=== PATIENT | male | born 1945 | race Caucasian/White ===

== ENCOUNTER 2024-03-23 10:45 | Outpatient (AMB) | payer MEDICARE, SELFPAY ==
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
[2024-03-23 11:05] VITALS: BP 188/87; PULSE 90; O2SAT 97; BMI 25.3
--- OUTSIDE RECORDS SUMMARY | 2024-03-23 12:51 | XMS_ITS | Continuity of Care Document ---
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 Name Role Phone Lion Chau MD Primary Care Physician [phone] Encounter [facility] Date(s): 03/02/24 - 03/09/24 [facility] Cardiac Surgery [address] [place] [address] Drive [address] [place] [address]- Attending Physician: Erich Wilson MD Referring Physician: Danuta SHANNON, [facility] Encounter Type: Office Visit Allergies, Adverse Reactions, Alerts Substance Criticality Severity Reaction Reaction Severity Status gabapentin SOB Active Dust Unable to assess criticality Intermittent Active Mold Unable to assess criticality Intermittent Active Pollen Active Lyrica Active DAMARIS inhibitors cough Activ e losartan Active Tolectin 600 Rectal bleeding A ctive pregabalin 1 Active 1bleeding from rectum Immunizations Given and Recorded Vaccine Date Status Refusal Reason tetanus/diphtheria/pertussis, acel(Tdap) 10/19/22 Given tetanus/diphtheria/pertussis, acel(Tdap) 09/07/14 Recorded [id number] bivalent booster vax 04/25/22 Recorded SARS-CoV-2 (COVID-19) mRNA-1273 vaccine 01/24/21 R ecorded SARS-CoV-2 (COVID-19) mRNA-1273 vaccine 07/12/20 R ecorded SARS-CoV-2 (COVID-19) mRNA-1273 vaccine 06/14/20 R ecorded SARS-CoV-2 (COVID-19) mRNA BNT-162b2 vac 05/24/20 Recorded Problem List Condition Confirmation Course Effective Dates Status H ealth Status Informant Elevated alkaline phosphatase level Confirmed Active Mild anemia Confirmed Active Aortic sclerosis Confirmed Active BPH with obstruction/lower urinary tract symptoms Confirmed Active Bilateral lower extremity edema Confirmed Active Blurred vision Confirmed Active Cardiac pacemaker in situ Confirmed Active Carotid atherosclerosis Confirmed Active Intracranial atherosclerosis 1, 2 Confirmed Active Cervical radiculopathy Confirmed Active CKD (chronic kidney disease), stage III Confirmed Active Congestive heart failure (CHF) Confirmed Active Coronary artery disease Confirmed Active Crohn's disease Confirmed Active Dysphagia Confirmed Active Greater trochanter fracture Confirmed Active Fracture of humerus neck Confirmed Active Shoulder fracture, left Confirmed Active Cardiac murmur Confirmed Active Ventral hernia 3 Confirmed Active History of coronary artery bypass graft Confirmed Active History of COVID-19 Confirmed Active Status post total right knee replacement Confirmed Active Hyperglycemia due to diabetes mellitus Confirmed Active Hyperlipidemia Confirmed Active Hypertensive disorder Confirmed Active Chronic lumbar radiculopathy Confirmed Active Aortic stenosis, moderate Confirmed Active Chronic pain of multiple joints Confirmed Active Opioid use Confirmed Active Paroxysmal atrial fibrillation with RVR Confirmed Active Recurrent falls Confirmed Active TACO (transfusion associated circulatory overload) 4 Confirmed 10/22/22 Active Tricuspid regurgitation 5 Confirmed Active Type 2 diabetes mellitus with hyperglycemia, without long-term current use of insulin Confirmed Active 1Above should read and MRA brain, MRI was also included in scanned document 2MRI brain at [facility] 2019 (scanned into our system) 3On abdominal imaging 4Patient at risk for Transfusion-Associated Circulatory Overload (TACO). The use of slow infusion rates, the administration of haily-transfusion diuretics where not clinically contraindicated, and/or the transfusion of split units of PRBCs should be considered in any future hemotherapy interventions.Consult Transfusion Medicine Services if any questions. 5TEE/TTE 2021 Vital Signs Most recent to oldest [Reference Range]: 1 Height 177 cm (03/02/24 11:31 AM) Weight 79.5 kg (03/02/24 11:31 AM) Oxygen Saturation [94-100 %] 99 % (03/02/24 11:31 AM) Pulse Rate [55-90 bpm] 56 bpm (03/02/24 11: AM) Body Mass Index [18.5-24.99 kg/m2] 25.38 kg/m2 *H* (03/02/24 11:31 AM) Blood Pressure [90-138/55-84 mm Hg] 128/ 80mm Hg (03/02/24 11:31 AM) Respiratory Rate [16-30 br/min] 14 br/mi n *L* (03/02/24 11:31 AM) Temperature [96.8-100.4 DegF] 97 DegF (03/02/24 11:31 AM) Mode of Delivery (Oxygen) Room air (03/02/24 11:31 AM) Blood pressure sites Arm, right (03/02/24 11:31 AM) Temperature Route Oral (03/02/24 11:31 AM) Weight Obtained Via Standing scale (03/02/24 11:31 AM) Social History Social History Type Response Smoking Status Never (less than 100 in lifetime); Use: pt denies entered on: 12/27/21 Sex Sex Representation Male (finding) Cardiac surgery Outpatient Note * Katie SHANNON, Erich: PERFORM Event Display: Cardiac Surgery Note Office Authored Date: [id number] Patient: ??RACHELLE BRANDON ? Age:??78 Years?Sex:??Male?:??1945?? Reason for Consultation severe History of Present Illness The patient is an 78-year-old male??with PMH??CAD/afib s/p CABGx3 in 2019, LAAL, h/o leadless pacemaker,??HTN,??chronic pain with opioid addiction, HLD, varicose veins, OA, poor mobility??who presented with progressive dyspnea on exertion and was found to have severe aortic stenosis, possibly low flow low gradient. ??Echo showed severe low flow low gradient mean gradient [address] TAVR from 11/2023 appears amenable to TF TAVR, patent grafts.?He denies any PND, orthopnea, cough, chestpain, pressure, palpitations, or dizziness/lightheadedness, bleeding, dark stools or abdominal complaints. He does not have exertional lightheadedness or syncope. He has not been hospitalized for overt congestive heart failure. ?? Review of Systems Constitutional:??No weight loss, fever, chills, weakness or fatigue. Allergy/Immune: Denies any??Eczema or hives Eyes:??No visual loss, blurred vision, double vision or yellow sclera ENT:??No hearing loss, sneezing, congestion, runny nose or sore throat. Respiratory:??No shortness of breath, cough or sputum production. Cardiovascular:??No chest pain, chest pressure or chest discomfort. No palpitations or pedal edema. Gastrointestinal:??No anorexia, nausea, vomiting or diarrhea. No abdominal pain or blood in stool. Genitourinary:??No burning micturition. No urinary frequency or incontinence. Neurologic:??No headache, dizziness, syncope, unilateral weakness, ataxia, numbness or tingling in the extremities. No change in bowel or bladder control. Musculoskeletal:??No muscle pain, back pain, joint pain or stiffness. Hematologic/Lymphatics:??No bleeding or bruising. No painful lymph nodes. Skin:??No rash or itching. Endocrine:??No reports of sweating. No cold or heat intolerance. No polyuria or polydipsia. Psychiatric:??No depression or anxiety. Physical Exam Vitals & Measurements T:??97?F?? HR:??56??(Peripheral)?? RR:??14?? BP:??128/80?? SpO2:??99%?? WT:??79.5??kg?? CONST:??Appears stated age, no acute distress, alert and oriented X 3 EYES:??Anicteric, nl conjunctivae, EOM intact ENT:??Nl oropharynx NECK:??No evidence of JVD or HJR. Carotid impulses and upstroke normal bilaterally, no carotid bruits?? CV: Regular rhythm, S1/S2.??There is a mid to late systolic crescendo decrescendo murmur noted in aortic area radiating towards carotids. ??No rubs or gallop noted. Femoral pulses nl and symmetric, no femoral bruits.??No aortic pulsation or aortic bruits. RESP:??Normal respiratory effort,??clear to auscultation GI:??Soft, non-tender and non-distended, bowels sounds normoactive, no abdominal bruits EXT: no??lower extremity edema,??no clubbing,??no cyanosis SKIN:??No rash, skin warm and dry.?? NEURO:?Alert and oriented x 3, CN 2-12 grossly intact?? Assessment/Plan The patient is an 78-year-old male with??low flow low gradient severe aortic stenosis who presentedwith progressive dyspnea on exertion and now is being evaluated for aortic valve replacement. Preoperative evaluation includes cardiac catheterization, CT TAVR and echocardiogram, which I reviewed indetail. I discussed at length the two types of aortic valve replacement, namely surgical and transcatheter, with the patient in my office today. His??STS risk for mortality for an isolated aortic valve replacement is calculated to??2.63%, which places him??in the??intermediate??risk category, however grossly underestimated.??We discussed in detail the risk of paravalvular leak and the superintendent container terminal durability concerns with TAVR; the patient expressed understanding of these risks and wishes to pursue the transcatheter approach instead of surgical aortic valve replacement. ??He is amenable to emergency open heart surgery in the case of a complication during TAVR. None the less, I believe the patient is a suitable TAVR candidate. We will further discuss his??case at an upcoming multidisciplinaryTAVR team meeting. ?? Thank you for this referral. ? Erich Wilson MD [facility] Cardiac Surgery?? [address] [facility], [address] [place] [address] Office: [phone] ? Problem List/Past Medical History Ongoing Acute on chronic diastolic CHF (congestive heart failure) Anemia Aortic sclerosis Aortic stenosis, moderate Atherosclerosis Atrial fibrillation Benign prostatic hyperplasia Blurred vision Carotid atherosclerosis Cellulitis of leg, right Cervical spondylosis Chronic pain CKD (chronic kidney disease), stage III Coronary artery disease COVID-19 COVID-19 Crohn's disease Diabetes Diabetic peripheral neuropathy Dysphagia Edema Fracture of humerus neck Greater trochanter fracture History of congestive heart failure in adulthood Hyperglycemia due to diabetes mellitus Hyperglycemia due to diabetes mellitus Hyperlipidemia Hypertensive disorder Hypokalemia Intracranial atherosclerosis Knee arthropathy Lymphedema of leg Opioid abuse Opioid use Paroxysmal atrial fibrillation with RVR Recurrent falls Shoulder fracture, left Spinal stenosis Status post total right knee replacement TACO (transfusion associated circulatory overload) Tricuspid regurgitation Ventral hernia Procedure/Surgical History ???Arthroplasty Knee Total (Right, Knee) (06/22/2023)???Esophagogastroduodenoscopy and biopsy (01/23/2023)???Direct current cardioversion (10/15/2020)???s/p single chamber Micra pacemaker (09/27/2020)???Arthroscopy Diagnostic and Operative Knee (Left, Knee) (04/30/2020)???Arthrotomy Knee (w/possible, Left, Knee) (04/30/2020)???CABG - Coronary artery bypass graft x 3 (12/13/2018)???Cardiac catheterization (11/04/2018)???Ablation of right GSV???History of Catheter Ablation Of Arrhythmogenic Bypass Tracts???History of Elective Cardioversion???History of Inguinal Hernia Repair???History of Laminectomy Decompressive Up To Two Lumbar Segments???History of Rotator Cuff Repair???History of shouldersurgery???THR - Total hip replacement Medications Inpatient No active inpatient medications Home aspirin 81 mg oral delayed release tablet, 81 mg= 1 tablet, By Mouth, Daily atorvastatin 20 mg oral tablet, 1 tablet, By Mouth, Daily bisoprolol 5 mg oral tablet, 5 mg= 1 tablet Contour Next EZ Glucometer, See Instructions Contour Next EZ Test Strips, See Instructions, 3 refills Contour Next Gen Microlet Lancets, See Instructions, 3 refills Fiber Choice, 3 Gm, Daily at bedtime finasteride 5 mg oral tablet, 5 mg= 1 tablet, By Mouth, Daily at bedtime glipiZIDE 5 mg oral tablet, extended release, 5 mg= 1 tablet, By Mouth, Daily ICaps AREDS 2 Imitrex 25 mg oral tablet, 25 mg= 1 tablet, By Mouth, Once, PRN [employer] [place]-3, 1200 mg, By Mouth, 3 times a day Lasix 40 mg oral tablet, 40 mg, By Mouth, Daily magnesium oxide 400 mg oral tablet, 400 mg= 1 tablet, By Mouth, Daily mesalamine 800 mg oral delayed release tablet, 800 mg= 1 tablet, By Mouth, 3 times a day, 6 refills Multivitamin Nitroglycerin 0.4mg Sublingual Tablet (OP), See Instructions omeprazole 40 mg oral enteric coated capsule, 40 mg= 1 capsule, By Mouth, Daily OxyCONTIN 10 mg oral tablet, extended release, 10 mg= 1 tablet, By Mouth, Every 12 hours Probiotic Formula, By Mouth, Daily saccharomyces boulardii lyo 250 mg oral capsule, 250 mg= 1 capsule, By Mouth, 2 times a day tamsulosin 0.4 mg oral capsule, 0.8 mg= 2 capsule, By Mouth, Daily at bedtime temazepam 15 mg oral capsule, 15 mg= 1 capsule, By Mouth, Daily at bedtime, PRN True metrix lancets, See Instructions, 3 refills True metrix Test Strips, See Instructions, 3 refills Truemetrix Glucose meter, See Instructions Allergies Dust Mold DAMARIS inhibitors??(cough) Lyrica Pollen Tolectin 600??(Rectal bleeding) gabapentin??(SOB) losartan pregabalin Social History Alcohol Use: quit 56 years ago. Electronic Cigarette/Vaping Electronic Cigarette Use: Never. Employment/School Status: Retired. Exercise Self assessment: Poor condition. Other: pt states he has not had much activities in 4 months. Regular exercise: No. Home/Environment Living situation: senior living. Lives with: Alone, states and son have both passed. Other: states and son have passed. has no friends out people to talk to. Nutrition/Health Diet: mostly canned foods and preprepared frozen foods. Does not cook--uses the microwave.. Sexual Sexually involved in last 6 months: No. Substance Abuse Use: pt denies. Tobacco Use: Never (less than 100 in lifetime), pt denies. Family History Thyroid disease: Father. Immunizations Vaccine Date Status influenza virus vaccine, inactivated - Not Given Comments : Patient Refuses tetanus/diphtheria/pertussis, acel(Tdap) 10/19/2022 Given [id number] bivalent booster vax 04/25/2022 Recorded influenza virus vaccine, inactivated - Not Given Comments : Patient Refuses SARS-CoV-2 (COVID-19) mRNA-1273 vaccine 01/24/2021 Recorded SARS-CoV-2 (COVID-19) mRNA-1273 vaccine 07/12/2020 Recorded SARS-CoV-2 (COVID-19) mRNA-1273 vaccine 06/14/2020 Recorded SARS-CoV-2 (COVID-19) mRNA BNT-162b2 vac 05/2020 Recorded tetanus/diphtheria/pertussis, acel(Tdap) 09/07/2014 Recorded * Sara Mensah MA: PERFORM, SIGN, VERIFY Event Display: Cardiac Surgery Note Office Authored Date: [id number] Patient: RACHELLE BRANDON Age: 78 years Sex: Male : 1945 Associated Diagnoses: None Author: Sara Mensah MA [place] Cardiomyopathy Questionnaire (CQ-12) The following questions refer to your heart failure and how it may affect your life. Please read and complete the following questions. There is no right or wrong answers. Please cub[place] the answer that best applies to you. 1. Heart failure affects different people in different ways. Some feel shortness of breath while others feel fatigue. Please indicate how much you are limited by heart failure (shortness of breath orfatigue) in your ability to do the following activities over the past 2 weeks. a. Showering/bathing: Extremely Limited (_) 1 Quite a bit limited (x) 2 Moderately Limited (_) 3 Slightly Limited (_) 4 Not at all Limited (_) 5 Limited for other reasons or did not do the activity (_) 6 b. Walking 1 block on level ground: Extremely Limited (_) 1 Quite a bit limited (_) 2 Moderately Limited (x) 3 Slightly Limited (_) 4 Not at all Limited (_) 5 Limited for other reasons or did not do the activity (_) 6 c. Hurrying or jogging (as if to catch a bus): Extremely Limited (x) 1 Quite a bit limited (_) 2 Moderately Limited (_) 3 Slightly Limited (_) 4 Not at all Limited (_) 5 Limited for other reasons or did not do the activity (_) 6 2. Over the past 2 weeks, how many times did you have swelling in your feet, ankles or legs when you woke up in the morning? Every Morning (x) 1 3 or more times per week but not every day (_) 2 1-2 times per week (_) 3 Less than once a week (_) 4 Never over the past 2 weeks (_) 5 3. Over the past 2 weeks, on average, how many times has fatigue limited your ability to do what you wanted? All of the time (_) 1 Several Times per day (x) 2 At least once a day (_) 3 3 or more times per week but not every day (_) 4 1-2 times per week (_) 5 Less than once a week (_) 6 Never over the past 2 weeks (_) 7 4. Over the past 2 weeks, on average, how many times has shortness of breath limited your ability to do what you wanted? All of the time (_) 1 Several Times per day (_) 2 At least once a day (_) 3 3 or more times per week but not every day (_) 4 1-2 times per week (_) 5 Less than once a week (_) 6 Never over the past 2 weeks (x) 7 5. Over the past 2 weeks, on average, how many times have you been forced to sleep sitting up in a chair or with at least 3 pillows to prop you up because of shortness of breath? Every night (_) 1 3 or more times per week but not every day (_) 2 1-2 times per week (_) 3 Less than once a week (_) 4 Never over the past 2 weeks (x) 5 6. Over the past 2 weeks, how much has your heart failure limited your enjoyment of life? It has extremely limited my enjoyment of life (_) 1 It has limited my enjoyment of life quite a bit (_) 2 It has moderately limited my enjoyment of life (x) 3 It has slightly limited my enjoyment of life (_) 4 It has not limited my enjoyment of life at all (_) 5 7. If you had to spend the rest of your life with your heart failure the way it is right now, how would you feel about this? Not at all satisfied (x) 1 Mostly dissatisfied (_) 2 Somewhat satisfied (_) 3 Mostly satisfied (_) 4 Completely satisfied (_) 5 8. How much does your heart failure affect your lifestyle? Please indicate how your heart failure may have limited your participation in the following activities over the past 2 weeks. a. Hobbies, recreational activities: Severely Limited (_) 1 Limited quite a bit (x) 2 Moderately Limited (_) 3 Slightly Limited (_) 4 Did not limit at all (_) 5 Does not apply or did not do for other reasons (_) 6 b. Working or doing drafter castings: Severely Limited (x) 1 Limited quite a bit (_) 2 Moderately Limited (_) 3 Slightly Limited (_) 4 Did not limit at all (_) 5 Does not apply or did not do for other reasons (_) 6 c. Visiting family or friends out of your home: Severely Limited (_) 1 Limited quite a bit (_) 2 Moderately Limited (x) 3 Slightly Limited (_) 4 Did not limit at all (_) 5 Does not apply or did not do for other reasons (_) 6 Total Score: 31 * Sara Mensah MA: PERFORM, SIGN, VERIFY Event Display: Cardiac Surgery Note Office Authored Date: [id number] Patient: RACHELLE BRANDON Age: 78 years Sex: Male : 1945 Associated Diagnoses: None Author: Sara Mensah MA TAVR Program Functional Assessment Test The KCCQ12 questionnaire was documented separately from this series of tests. A walk and farm reporter tests were performed on this patient with the following results: Walk Test- Five-meter Gait Speed #1 - 10.25sec #2 - 12.64sec #3 - 9.30sec Equals = 32.20sec Average = 10.73sec Average Adult Supervisor [employer] Strength (kg) Right: #1 - _kg #2 - _kg #3 - _kg Equals = _kg Average = _kg Graded Classification: _ Left: #1 - _kg #2 - _kg #3 - _kg Equals = _kg Average = _kg Graded Classification: _ Patient Care team information Care Team Personnel Name: Noreen Murphy CNM Position: Reference Physician Member Role: Primary Care Nurse Address: [address] [place] [id number] Telecom: Name: Mary Carvalho RN Position: [facility] RN Member Role: Primary Care Nurse Name: Marco Antonio Knutson RN Position: [facility] RN Member Role: Primary Care Nurse Name: Deedee Rubin RN Position: [facility] Hospital Wet And Dry Sugar Bin Operator Member Role: Primary Care Nurse Name: Georgina Herrera RN Position: [facility] RN Member Role: Primary Care Nurse Name: Marixa Leung RN Position: [facility] AMB Nurse Member Role: Primary Care Nurse Name: Georgina Kate RN Position: [facility] RN Member Role: Primary Care Nurse Name: Kindra Kohli RN Position: [facility] RN Member Role: Primary Care Nurse Name: Marsha Agudelo RN Position: [facility] RN Member Role: Primary Care Nurse Name: Mishel Scott RN Position: [facility] RN Member Role: Primary Care Nurse Name: Anabel Logan RN Position: [facility] RN Member Role: Primary Care Nurse Name: Jonny Mcbride RN Position: [facility] RN Member Role: Primary Care Nurse Name: Kasandra Gillespie RN Position: [facility] RN Member Role: Primary Care Nurse Name: Cesario Painter RN Position: [facility] RN Supv Member Role: Primary Care Nurse Name: Georgina Thomas RN Position: [facility] RN Member Role: Primary Care Nurse Name: Felicia Monzon RN Position: [facility] SN RN Member Role: Primary Care Nurse Name: Becca Ontiveros RN Position: [facility] RN Supv Member Role: Primary Care Nurse Name: Poncho Allison RN Position: [facility] RN Member Role: Primary Care Nurse Name: Georgette Reyes RN Position: [facility] RN Member Role: Primary Care Nurse Name: Linda Chavis RN Position: [facility] RN Member Role: Primary Care Nurse Name: Wilbert Hazel RN Position: [facility] RN Member Role: Primary Care Nurse Name: Celi Xavier RN Position: [facility] RN Member Role: Primary Care Nurse Name: Sharon Sumner RN Position: [facility] RN Member Role: Primary Care Nurse Name: Екатерина Zuluaga RN Position: [facility] RN Member Role: Primary Care Nurse Name: Blu Bauer RN Position: [facility] RN Member Role: Primary Care Nurse Name: Terese Arce RN Position: [facility] RN Member Role: Primary Care Nurse Name: Carolyn Garcia RN Position: [facility] RN Member Role: Primary Care Nurse Name: Georgette Clarke RN Position: [facility] press service reader Member Role: Shellacker Name: Paris Pederson RN Position: [facility] RN Member Role: Primary Care Nurse Name: Marilee Romero RN Position: [facility] RN Member Role: Primary Care Nurse Name: Vu Bishop RN Position: [facility] RN Supv Member Role: Primary Care Nurse Name: Terese Davenport RN Position: [facility] RN Member Role: Primary Care Nurse Name: Paula Gil RN Position: [facility] RN Member Role: Primary Care Nurse Name: Maria Dias RN Position: [facility] RN Member Role: Primary Care Nurse Name: Corin Baker RN Position: [facility] RN Member Role: Primary Care Nurse Name: Lion Chau MD Position: [facility] Physician - Primary Care Member Role: PCP Address: [address] [place] [address], [address] [place], [place] [address] Telecom: Name: Loreto Pascal LPN Position: [facility] RN Member Role: Primary Care Nurse Name: Anabel Peraza RN Position: [facility] RN Member Role: Primary Care Nurse Name: Sona Willis RN Position: [facility] AMB Nurse Member Role: Primary Care Nurse Care Team Related Persons Name: RACHELLE BRANDON Insurance Providers Guarantor name: AIDA Health Plan Information #: 1 Payer: MEDICARE PART B OUTPT Member Number: [id number] Policy Number: NA Group Number: NA Health Plan Information #: 2 Payer: MEDEX Member Number: [id number] Policy Number: NA Group Number: NA
--- OUTSIDE RECORDS SUMMARY | 2024-03-23 12:51 | XMS_ITS ---
Author Organization [facility] Address Unknown Allergies, Adverse Reactions, Alerts Substance Reaction Status Noted Date Resolved Date Tolectin active 10/31/2022 Pregabalin active 10/31/2022 mold active 10/31/2022 Losartan active 10/31/2022 Gabapentin active 10/31/2022 Dust active 10/31/2022 DAMARIS Inhibitors active 10/31/2022 Problems Problem Status Start Date End Date OTHER LACK OF COORDINATION ( Primary) (R27.8 - ICD-10-CM) ACTIVE 10/31/2022 OTHER DISPLACED FRACTURE OF UPPER END OF RIGHT HUMERUS, SUBSEQUENT ENCOUNTER FOR FRACTURE WITH ROUTINE HEALING (S42.291D - ICD-10-CM) ACTIVE 10/31/2022 UNSPECIFIED TROCHANTERIC FRA CTURE OF RIGHT FEMUR, SUBSEQUENT ENCOUNTER FOR CLOSED FRACTURE WITH ROUTINE HEALING (S72.101D - ICD-10-CM) ACTIVE 10/31/2022 TYPE 2 DIABETES MELLITUS WIT HOUT COMPLICATIONS (E11.9 - ICD-10-CM) ACTIVE 10/31/2022 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 - ICD-10-CM) ACTIVE 10/31/2022 UNSPECIFIED PROTEIN-CALORIE MALNUTRITION (E46 - ICD-10-CM) ACTIVE 10/31/2022 SEPSIS, UNSPECIFIED ORGANISM (A41.9 - ICD-10-CM) ACTIV E 10/31/2022 DYSPHAGIA FOLLOWING UNSPECIF IED CEREBROVASCULAR DISEASE (I69.991 - ICD-10-CM) ACTIVE 10/31/2022 DIFFICULTY IN WALKING, NOT E LSEWHERE CLASSIFIED (R26.2 - ICD-10-CM) ACTIVE 10/31/2022 ATHEROSCLEROTIC HEART DISEAS E OF [place] 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 - ICD-10-CM) ACTIVE 11/01/19 23 OPIOID ABUSE, UNCOMPLICATED (F11.10 - ICD-10-CM) ACTIV E 10/31/2022 IRON DEFICIENCY ANEMIA, UNSP ECIFIED (D50.9 - ICD-10-CM) ACTIVE 10/31/2022 BENIGN PROSTATIC HYPERPLASIA WITHOUT LOWER URINARY TRACT SYMPTOMS (N40.0 - ICD-10-CM) ACTIVE 10/31/2022 ANEMIA, UNSPECIFIED (D64.9 - ICD-10-CM) ACTIVE 0 10/31/2022 LOW BACK PAIN, UNSPECIFIED (M54.50 - ICD-10-CM) ACTIVE 10/31/2022 MAJOR DEPRESSIVE DISORDER, S ROXANNE EPISODE, UNSPECIFIED (F32.9 - ICD-10-CM) ACTIVE 10/31/2022 UNSPECIFIED ATRIAL FIBRILLATION (I48.91 - ICD-10-CM) A CTIVE 10/31/2022 OCCLUSION AND STENOSIS OF UN SPECIFIED CAROTID ARTERY (I65.29 - ICD-10-CM) ACTIVE 10/31/2022 ANEMIA IN CHRONIC KIDNEY DISEASE (D63.1 - ICD-10-CM) A CTIVE 10/31/2022 HYPERLIPIDEMIA, UNSPECIFIED (E78.5 - ICD-10-CM) ACTIVE 10/31/2022 EDEMA, UNSPECIFIED (R60.9 - ICD-10-CM) ACTIVE ESSENTIAL (PRIMARY) HYPERTENSION (I10 - ICD-10-CM) ACT BLADIMIR 10/31/2022 HYPOKALEMIA (E87.6 - ICD-10-CM) RESOLVED 3 10/31/2022 Encounters Encounter Performer Performer Role Encounter Diagnoses Location Date Discharge - Discharged / Transferred to another hospital - [facility] 3 05:32 pm EDT - 3 11:50 pm EDT Reason For Referral Pain (uncontrolled) Immunizations Vaccine Date Tdap (Tetanus, Diphtheria, Pertussis) 12:00 am EDT Moderna Covid-19 Booster (SARS-COV-2) va ccine 01/24/2021 12:00 am EST Moderna Covid-19 Booster (SARS-COV-2) va ccine 07/12/2020 12:00 am EDT Moderna Covid-19 Booster (SARS-COV-2) va ccine 06/14/2020 12:00 am EDT Moderna COVID-19 Bi-valent Solution /0 04/2022 12:00 am EST Social History
--- OUTSIDE RECORDS SUMMARY | 2024-03-23 12:52 | XMS_ITS | Encounter Summary ---
Author Organization [facility] Address [id number] [place] [id number] Care Team Providers Care Coach Name Role Phone Lion Chau MD Primary Care Provider [phone] Encounter Details Date Type Department Care Team (Latest Contact Info) Description 12/26/[address] [facility] - Main Lab [address] [facility] [place] [address] Bill Stiles MD [address] [place] [id number] Type 2 diabetes mellitus with unspecified complications (CMS/HCC); Unspecified atrial fibrillation (CMS/HCC) Social History Tobacco Use Types Packs/Day Years Used Date Smoking Tobacco: Never Smokeless Tobacco: Never Sex and Gender Information Value Date Recorded Sex Assigned at Not on file Gender Identity Not on file Sexual Orientation Not on file documented as of this encounter Plan of Treatment Not on file documented as of this encounter Procedures Procedure Name Priority Date/Time Associated Diagnosis Comments TRAVEL PHLEBOTOMY FEE Routine 12/26/2023 6:58 AM EDT Type 2 diabetes mellitus with unspecified complications (CMS/HCC) Unspecified atrial fibrillation (CMS/HCC) COMPLETE BLOOD COUNT Routine 12/26/2023 6:58 AM EDT Type 2 diabetes mellitus with unspecified complications (CMS/HCC) Unspecified atrial fibrillation (CMS/HCC) HEMOGLOBIN A1C Routine 12/26/2023 6:58 AM EDT Type 2 diabetes mellitus with unspecified complications (CMS/HCC) Unspecified atrial fibrillation (CMS/HCC) BASIC METABOLIC PANEL Routine 12/26/2023 6:58 AM EDT Type 2 diabetes mellitus with unspecified complications (CMS/HCC) Unspecified atrial fibrillation (CMS/HCC) documented in this encounter Results * Travel phlebotomy fee (12/26/2023 6:58 AM EDT) [facility] TRAVEL PHLEBOTOMY FEE Completed 12/26/2023 8:[address] [facility] Blood Venous blood specimen / Unknown 12/26/2023 6:58 AM EDT 12/26/2023 7:46 AM EDT Bill Stiles MD LAB BLOOD ORDERABLES [facility] [address] [place] [address], [place] [phone] * Hemoglobin A1c (12/26/2023 6:58 AM EDT) [facility] Hemoglobin A1C 6.0 <6.5 % LAB CHEMISTRY METHOD 12/27/2023 2:[address] [facility] Mean Bld Glu Estim. 126 mg/dL LAB CHEMISTRY METHOD 12/27/2023 2:[address] [facility] Blood Venous blood specimen / Unknown Venipuncture / Unknown 12/26/2023 6:58 AM EDT 12/26/2023 7:46 AM EDT Bill Stiles MD LAB BLOOD ORDERABLES [facility] [address] [place] [address], [place] [phone] * (ABNORMAL) Basic metabolic panel (12/26/2023 6:58 AM EDT) [facility] Sodium 138 133 - 145 mmol/L LAB CHEMISTRY METHOD 12/26/2023 9:[address] [facility] Potassium 4.4 3.5 - 5.5 mmol/L LAB CHEMISTRY METHOD 12/26/2023 9:47 AM [facility] Chloride 108 96 - 110 mmol/L LAB CHEMISTRY METHOD 12/26/2023 9:47 AM [facility] CO2 27 21 - 32 mmol/L LAB CHEMISTRY METHOD 12/26/2023 9:47 AM [facility] Anion Gap 3 3 - 11 LAB CHEMISTRY METHOD 12/26/2023 9:47 AM [facility] Glucose 102(H) 70 - 100 mg/dL LAB CHEMISTRY METHOD 12/26/2023 9:47 AM [facility] BUN 18 5 - 25 mg/dL LAB CHEMISTRY METHOD 12/26/2023 9:47 AM [facility] Creatinine 0.81 0.70 - 1.30 mg/dL LAB CHEMISTRY METHOD 12/26/2023 9:47 AM [facility] eGFR 89 >=60 mL/min/1. 73m2 LAB CHEMISTRY METHOD 12/26/2023 9:47 AM [facility] Comment:Calculation based on the??Chronic Kidney Disease Epidemiology Collaboration (CKD-EPI) equation refit??without adjustment for race. BUN/Creatinine Ratio 22.2 LAB CHEMISTRY METHOD 12/26/2023 9:47 AM [facility] Calcium 8.7 8.5 - 10.5 mg/dL LAB CHEMISTRY METHOD 12/26/2023 9:47 AM [facility] Blood Venous blood specimen / Unknown Venipuncture / Unknown 12/26/2023 6:58 AM EDT 12/26/2023 7:46 AM EDT Bill Stiles MD LAB BLOOD ORDERABLES [facility] [address] [place] [address], * (ABNORMAL) Complete blood count (12/26/2023 6:58 AM EDT) [facility] WBC 9.8 4.8 - 10.8 K/mcL LAB HEMETOLOGY METHOD 12/26/2023 3:04 PM [facility] RBC 3.40(L) 4.50 - 5.50 M/mcL LAB HEMETOLOGY METHOD 12/26/2023 3:04 PM [facility] Hemoglobin 8.2(L) 13.5 - 17.5 g/dL LAB HEMETOLOGY METHOD 12/26/2023 3:04 PM [facility] Hematocrit 29.1(L) 42.0 - 54.0 % LAB HEMETOLOGY METHOD 12/26/2023 3:04 PM [facility] MCV 85.6 79.0 - 98.0 FL LAB HEMETOLOGY METHOD 12/26/2023 3:04 PM [facility] MCH 24.1(L) 27.0 - 32.0 pcg LAB HEMETOLOGY METHOD 12/26/2023 3:04 PM [facility] MCHC 28.2(L) 32.0 - 37.0 g/dL LAB HEMETOLOGY METHOD 12/26/2023 3:04 PM [facility] RDW 20.1(H) 11.0 - 15.0 % LAB HEMETOLOGY METHOD 12/26/2023 3:04 PM [facility] Platelets 433(H) 130 - 400 K/mcL LAB HEMETOLOGY METHOD 12/26/2023 3:04 PM [facility] MPV 9.1 7.0 - 11.0 FL LAB HEMETOLOGY METHOD 12/26/2023 3:04 PM [facility] NRBC 0.0 <1.0 % LAB HEMETOLOGY METHOD 12/26/2023 3:04 PM [facility] NRBC Absolute 0.00 <0.10 K/mcL LAB HEMETOLOGY METHOD 12/26/2023 3:[address] [facility] Blood Venous blood specimen / Unknown Venipuncture / Unknown 12/26/2023 6:58 AM EDT 12/26/2023 7:46 AM EDT Bill Stiles MD LAB BLOOD ORDERABLES [facility] [address] [place], [place] [address] [phone] documented in this encounter Visit Diagnoses Diagnosis Type 2 diabetes mellitus with unspecified complications (CMS/HCC) Unspecified atrial fibrillation (CMS/HCC) documented in this encounter Care Teams Coach Relationship Specialty Start Date End Date Lion Chau MD PCP - General Internal Medicine 02/08/19 documented as of this encounter
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
--- OUTSIDE RECORDS SUMMARY | 2024-03-23 12:52 | XMS_ITS | Continuity of Care Document ---
Author Organization [facility] Address [address] [place] [id number]- Care Team Providers Care Terrazzo Mechanic Helper Name Role Phone Kandi SHANNON, Lion Day Primary Care Physician Encounter [facility] Date(s): 02/03/24 - 03/04/24 [facility] [address] [place] [id number]- Attending Physician: Dileep Levine Admitting Physician: Dileep Levine Referring Physician: Dileep Levine Encounter Type: Triage Allergies, Adverse Reactions, Alerts Substance Criticality Severity Reaction Reaction Severity Status gabapentin SOB Active Dust Unable to assess criticality Intermittent Active Pollen Active pregabalin 1 Active Lyrica Active DAMARIS inhibitors cough Activ e losartan Active Tolectin 600 Rectal bleeding A ctive Mold Unable to assess criticality Intermittent Active 1bleeding from rectum Immunizations Given and Recorded Vaccine Date Status Refusal Reason tetanus/diphtheria/pertussis, acel(Tdap) 10/19/22 Given tetanus/diphtheria/pertussis, acel(Tdap) 09/07/14 Recorded [id number] bivalent booster vax 04/25/22 Recorded SARS-CoV-2 (COVID-19) mRNA-1273 vaccine 01/24/21 R ecorded SARS-CoV-2 (COVID-19) mRNA-1273 vaccine 07/12/20 R ecorded SARS-CoV-2 (COVID-19) mRNA-1273 vaccine 06/14/20 R ecorded SARS-CoV-2 (COVID-19) mRNA BNT-162b2 vac 05/24/20 Recorded Medications aspirin 81 mg oral delayed release tablet 81 mg, 1, tablet, By Mouth, Daily, Refills 0, Maintenance, 4/2/23 6:40:00 AM EDT, Partial fill uponpatient request if the prescription is for a schedule II opioid drug. Start Date: 05/25/22 Status: Ordered Repeat number: 1 atorvastatin 20 mg oral tablet 1 tablet, By Mouth, Daily, # 30 tablet, 11 Refills, Maintenance, 12/29/23 3:40:00 PM EST, [facility], 177, cm, 12/25/23 7:29:00 EDT, Height, 75.2, kg, 12/16/23 4:41:00 EDT, Dry Weight Start Date: 12/29/23 Status: Ordered Quantity: 30.0 Unit: tablet Repeat number: 1 bisoprolol 5 mg oral tablet 1 tablet = 5 mg, TAKE 1 TABLET BY MOUTH DAILY Start Date: 06/23/23 Status: Ordered Repeat number: 1 Contour Next EZ Glucometer See Instructions, # 1 each, Refills 0, Tot. Refills 0, Maintenance, Check blood sugar once a day before breakfast. Dx: E11.65, 11/20/23 12:14:00 PM EDT, Supply, 178, cm, 10/20/23 15:29:00 EDT, Height,83, kg, 09/16/23 17:08:00 EDT, Dry Weight Start Date: 11/20/23 Status: Ordered Quantity: 1.0 Unit: each Repeat number: 1 Indication: Type 2 diabetes mellitus with hyperglycemia Contour Next EZ Test Strips See Instructions, # 100 each, Refills 3, Tot. Refills 3, Maintenance, Check blood sugar once a day before breakfast. Dx: E11.65, 11/20/23 12:15:00 PM EDT, Supply, 178, cm, 10/20/23 15:29:00 EDT, Height, 83, kg, 09/16/23 17:08:00 EDT, Dry Weight Start Date: 11/20/23 Status: Ordered Quantity: 100.0 Unit: each Repeat number: 4 Indication: Type 2 diabetes mellitus with hyperglycemia Contour Next Gen Microlet Lancets Contour Next Gen Microlet Lancets, See Instructions, # 100 each, Refills 3, Tot. Refills 3, Maintenance, Check blood sugar once a day before breakfast. Dx: E11.65, 11/20/23 12:15:00 PM EDT, Supply, 178, cm, 10/20/23 15:29:00 EDT, Height, 83, kg, 09/16/23 17:08:00 EDT, Dry Weight Start Date: 11/20/23 Status: Ordered Quantity: 100.0 Unit: each Repeat number: 4 Indication: Type 2 diabetes mellitus with hyperglycemia Fiber Choice = 3 Gm, Daily at bedtime, 0 Refills, Maintenance, 10/20/23 3:29:00 PM EDT, Partial fill upon patientrequest if the prescription is for a schedule II opioid drug. Start Date: 10/20/23 Status: Ordered Repeat number: 1 finasteride 5 mg oral tablet 1 tablet = 5 mg, By Mouth, Daily at bedtime Start Date: 12/15/23 Status: Ordered Repeat number: 1 glipiZIDE 5 mg oral tablet, extended release 1 tablet = 5 mg, By Mouth, Daily, # 30 tablet, 0 Refills, Maintenance, 02/08/24 3:57:00 PM EST, ER Tablet, [facility] [place], Partial fill upon patient request if the prescription is for a schedule II opioid drug., 177, cm, 02/08/24 15:31:00 EST, Height, 75.2, kg, 12/16/23 4:41:00 EDT, Dry Weight Start Date: 02/08/24 Status: Ordered Quantity: 30.0 Unit: tablet Repeat number: 1 ICaps AREDS 2 0 Refills, Maintenance, 02/08/24 3:21:00 PM EST, Partial fill upon patient request if the prescription is for a schedule II opioid drug. Start Date: 02/08/24 Status: Ordered Repeat number: 1 Imitrex 25 mg oral tablet 1 tablet = 25 mg, By Mouth, Once, PRN for migraine headache, 1-2, # 9 tablet, 0 Refills, Maintenance, 02/19/24 9:41:00 AM EST, Tablet, Partial fill upon patient request if the prescription is for a schedule II opioid drug. Start Date: 02/19/24 Status: Ordered Quantity: 9.0 Unit: tablet Repeat number: 1 [employer] [place]-3 = 1,200 mg, By Mouth, 3 times a day, 0 Refills, Maintenance, 02/08/24 3:22:00 PM EST, Partial fill upon patient request if the prescription is for a schedule II opioid drug. Start Date: 02/08/24 Status: Ordered Repeat number: 1 Lasix 40 mg oral tablet 40 mg, By Mouth, Daily, Refills 0, Maintenance, 09/04/23 12:54:00 PM EDT, Partial fill upon patient request if the prescription is for a schedule II opioid drug. Start Date: 09/04/23 Status: Ordered Repeat number: 1 magnesium oxide 400 mg oral tablet 1 tablet = 400 mg, By Mouth, Daily, Maintenance, 12/15/23 5:16:00 PM EDT, Tablet, Partial fill uponpatient request if the prescription is for a schedule II opioid drug. Start Date: 12/15/23 Status: Ordered Repeat number: 1 mesalamine 800 mg oral delayed release tablet 1 tablet = 800 mg, By Mouth, 3 times a day, # 90 tablet, 6 Refills, Maintenance, 12/30/23 10:44:00 AM EST, EC Tablet, [facility] [address] [place], [place], Partial fill upon patient request if the prescription is for a schedule II opioid drug., 177, cm, 12/25/23 7:29:00 EDT, Height, 75.2, kg, 12/16/23 4:41:00 EDT, Dry Weight Start Date: 12/30/23 Stop Date: 07/27/24 Status: Ordered Quantity: 90.0 Unit: tablet Repeat number: 7 Multivitamin 0 Refills, Maintenance, 10/20/23 3:28:00 PM EDT, Partial fill upon patient request if the prescription is for a schedule II opioid drug. Start Date: 10/20/23 Status: Ordered Repeat number: 1 Nitroglycerin 0.4mg Sublingual Tablet (OP) See Instructions, 0.4 mg Sublingual not to exceed 3 doses/15 min--if pain persists, seek medical attention, 0 Refills, Maintenance, 04/16/23 4:18:00 PM EST, Partial fill upon patient request if the prescription is for a schedule II opioid drug. Start Date: 04/16/23 Status: Ordered Repeat number: 1 omeprazole 40 mg oral enteric coated capsule 1 capsule = 40 mg, By Mouth, Daily Start Date: 12/15/23 Status: Ordered Repeat number: 1 OxyCONTIN 10 mg oral tablet, extended release 10 mg, 1, tablet, By Mouth, Every 12 hours, # 14 tablet, Refills 0, Tot. Refills 0, Maintenance, 12/28/23 9:36:00 AM EST, Route to Pharmacy Electronically, Drip In., Partial fill upon patient request if the prescription is for a schedule II opioid drug., 177, cm, 12/25/23 7:29:00 EDT, Height, 75.2, kg, 12/16/23 4:41:00 EDT, Dry Weight Start Date: 12/28/23 Stop Date: 01/04/24 Status: Ordered Quantity: 14.0 Unit: tablet Repeat number: 1 Probiotic Formula By Mouth, Daily, 0 Refills, Maintenance, 02/19/24 9:41:00 AM EST, Partial fill upon patient requestif the prescription is for a schedule II opioid drug. Start Date: 02/19/24 Status: Ordered Repeat number: 1 saccharomyces boulardii lyo 250 mg oral capsule 1 capsule = 250 mg, By Mouth, 2 times a day, Maintenance, 11/11/22 11:19:00 AM EDT, Capsule, Partialfill upon patient request if the prescription is for a schedule II opioid drug. Start Date: 11/11/22 Status: Ordered Repeat number: 1 tamsulosin 0.4 mg oral capsule 0.8 mg, 2, capsule, By Mouth, Daily at bedtime Start Date: 12/15/23 Status: Ordered Repeat number: 1 temazepam 15 mg oral capsule 1 capsule = 15 mg, By Mouth, Daily at bedtime, PRN for sleep, 0 Refills, Maintenance, 02/08/24 3:21:00 PM EST, Capsule, Partial fill upon patient request if the prescription is for a schedule II opioid drug. Start Date: 02/08/24 Status: Ordered Repeat number: 1 True metrix lancets True metrix lancets, See Instructions, # 180 each, Refills 3, Tot. Refills 3, Maintenance, Check blood sugar twice daily before meals. Dx: E11.65 on insulin, 11/24/23 4:26:00 PM EDT, Supply, 178, cm, 10/20/23 15:29:00 EDT, Height, 83, kg, 09/16/23 17:08:00 EDT, Dry Weight Start Date: 11/24/23 Status: Ordered Quantity: 180.0 Unit: each Repeat number: 4 Indication: Type 2 diabetes mellitus with hyperglycemia True metrix Test Strips True metrix Test Strips, See Instructions, # 180 each, Refills 3, Tot. Refills 3, Maintenance, Check blood sugar twice daily before meals. Dx: E11.65 on insulin, 11/24/23 4:26:00 PM EDT, Supply, 178, cm, 10/20/23 15:29:00 EDT, Height, 83, kg, 09/16/23 17:08:00 EDT, Dry Weight Start Date: 11/24/23 Status: Ordered Quantity: 180.0 Unit: each Repeat number: 4 Indication: Type 2 diabetes mellitus with hyperglycemia Truemetrix Glucose meter Truemetrix Glucose meter, See Instructions, # 1 each, Refills 0, Tot. Refills 0, Maintenance, Checkblood sugar twice daily before meals. Dx: E11.65 on insulin, 11/24/23 4:27:00 PM EDT, Supply, 178, cm, 10/20/23 15:29:00 EDT, Height, 83, kg, 09/16/23 17:08:00 EDT, Dry Weight Start Date: 11/24/23 Status: Ordered Quantity: 1.0 Unit: each Repeat number: 1 Indication: Type 2 diabetes mellitus with hyperglycemia Problem List Condition Confirmation Course Effective Dates Status H ealth Status Informant Acute on chronic diastolic CHF (congestive heart failure) Confirmed Active Anemia Confirmed Active Aortic sclerosis Confirmed Active Atherosclerosis 1 Confirmed Active Knee arthropathy Confirmed Active Atrial fibrillation Confirmed Active Benign prostatic hyperplasia Confirmed Active Blurred vision Confirmed Active Carotid atherosclerosis Confirmed Active Cellulitis of leg, right Confirmed Active Intracranial atherosclerosis 2, 3 Confirmed Active Cervical spondylosis Confirmed Active CKD (chronic kidney disease), stage III Confirmed Active Chronic pain Confirmed Active Coronary artery disease Confirmed Active COVID-19 Confirmed Active COVID-19 4 Confirmed 09/18/23 Active Crohn's disease Confirmed Active Diabetes Confirmed Active Diabetic peripheral neuropathy Confirmed Active Dysphagia Confirmed Active Greater trochanter fracture Confirmed Active Fracture of humerus neck Confirmed Active Shoulder fracture, left Confirmed Active History of congestive heart failure in adulthood Confirmed Active Ventral hernia 5 Confirmed Active Status post total right knee replacement Confirmed Active Hyperglycemia due to diabetes mellitus Confirmed Active Hyperglycemia due to diabetes mellitus Confirmed Active Hyperlipidemia Confirmed Active Hypertensive disorder Confirmed Active Hypokalemia Confirmed Active Lymphedema of leg Confirmed Active Aortic stenosis, moderate Confirmed Active Opioid use Confirmed Active Opioid abuse Confirmed Active Paroxysmal atrial fibrillation with RVR Confirmed Active Recurrent falls Confirmed Active Spinal stenosis Confirmed Active Edema Confirmed Active TACO (transfusion associated circulatory overload) 6 Confirmed 10/22/22 Active Tricuspid regurgitation 7 Confirmed Active 1Evident on imaging of chest, has intracranial atherosclerosis, post CABG 2Above should read and MRA brain, MRI was also included in scanned document 3MRI brain at [facility] 2019 (scanned into our system) 4Problem added by Discern Expert 5On abdominal imaging 6Patient at risk for Transfusion-Associated Circulatory Overload (TACO). The use of slow infusion rates, the administration of haily-transfusion diuretics where not clinically contraindicated, and/or the transfusion of split units of PRBCs should be considered in any future hemotherapy interventions.Consult Transfusion Medicine Services if any questions. 7TEE/TTE 2021 Social History Social History Type Response Smoking Status Never (less than 100 in lifetime); Use: pt denies entered on: 12/27/21 Sex Sex Representation Male (finding) Patient Care team information Care Team Personnel Name: Noreen Murphy CNM Position: Reference Physician Member Role: Primary Care Nurse Address: [address] [place] [address] Telecom: Name: Mary Carvalho RN Position: [facility] RN Member Role: Primary Care Nurse Name: Marco Antonio Knutson RN Position: [facility] RN Member Role: Primary Care Nurse Name: Deedee Rubin RN Position: [facility] Hospital Sales And Distribution Clerk Member Role: Primary Care Nurse Name: Georgina Herrera RN Position: [facility] RN Member Role: Primary Care Nurse Name: Marixa Leung RN Position: [facility] DESI Nurse Member Role: Primary Care Nurse Name: Georgina Kate RN Position: [facility] RN Member Role: Primary Care Nurse Name: Kindra Kohli RN Position: [facility] RN Member Role: Primary Care Nurse Name: Marsha Agudelo RN Position: [facility] RN Member Role: Primary Care Nurse Name: Mishel Scott RN Position: [facility] RN Member Role: Primary Care Nurse Name: Anabel Logan RN Position: [facility] RN Member Role: Primary Care Nurse Name: Jonny Mcbride RN Position: [facility] RN Member Role: Primary Care Nurse Name: Kasandra Gillespie RN Position: [facility] RN Member Role: Primary Care Nurse Name: Cesario Painter RN Position: [facility] RN Supv Member Role: Primary Care Nurse Name: Georgina Thomas RN Position: [facility] RN Member Role: Primary Care Nurse Name: Felicia Monzon RN Position: [facility] SN RN Member Role: Primary Care Nurse Name: Becca Ontiveros RN Position: [facility] RN Supv Member Role: Primary Care Nurse Name: Poncho Allison RN Position: [facility] RN Member Role: Primary Care Nurse Name: Georgette Reyes RN Position: [facility] RN Member Role: Primary Care Nurse Name: Linda Chavis RN Position: [facility] RN Member Role: Primary Care Nurse Name: Wilbert Hazel RN Position: [facility] RN Member Role: Primary Care Nurse Name: Celi Xavier RN Position: [facility] RN Member Role: Primary Care Nurse Name: Sharon Sumner RN Position: [facility] RN Member Role: Primary Care Nurse Name: Екатерина Zuluaga RN Position: [facility] RN Member Role: Primary Care Nurse Name: Blu Bauer RN Position: [facility] RN Member Role: Primary Care Nurse Name: Terese Arce RN Position: [facility] RN Member Role: Primary Care Nurse Name: Carolyn Garcia RN Position: [facility] RN Member Role: Primary Care Nurse Name: Georgette Clarke RN Position: [facility] resident director Member Role: Manager Sales And Marketing Name: Paris Pederson RN Position: [facility] RN Member Role: Primary Care Nurse Name: Marilee Roemro RN Position: [facility] RN Member Role: Primary Care Nurse Name: Vu Bishop RN Position: [facility] RN Supv Member Role: Primary Care Nurse Name: Terese Davenport RN Position: [facility] RN Member Role: Primary Care Nurse Name: Paula Gil RN Position: [facility] RN Member Role: Primary Care Nurse Name: Maria Dias RN Position: [facility] RN Member Role: Primary Care Nurse Name: Corin Baker RN Position: [facility] RN Member Role: Primary Care Nurse Name: Lion Chau MD Position: [facility] Physician - Primary Care Member Role: PCP Address: [address] [place] [address], [address] [place], [place] [address] Telecom: Name: Loreto Pascal LPN Position: S RN Member Role: Primary Care Nurse Name: Anabel Peraza RN Position: [facility] RN Member Role: Primary Care Nurse Name: Sona Willis RN Position: [facility] AMB Nurse Member Role: Primary Care Nurse Care Team Related Persons Name: RACHELLE BRANDON Insurance Providers Guarantor name: AIDA Health Plan Information #: 1 Payer: MEDICARE PART B OUTPT Member Number: NA Policy Number: NA Group Number: NA Health Plan Information #: 2 Payer: MEDEX Member Number: NA Policy Number: NA Group Number: NA
--- OUTSIDE RECORDS SUMMARY | 2024-03-23 12:52 | XMS_ITS | Clinical Summary ---
Author Organization [address] [facility] Address [address] [place] [address] Phone Care Team Providers Care Banana Grader Name Role Phone Lion Chau MD Primary Care Provider [phone] Encounters Date Type Department Care Team Description 12/26/2023 Lab Requisition [facility] [address] [place] [address] Bill Stiles MD Type 2 diabetes mellitus with unspecified complications (CMS/HCC); Unspecified atrial fibrillation (CMS/HCC) from Last 3 Months Social History Tobacco Use Types Packs/Day Years Used Date Smoking Tobacco: Never Smokeless Tobacco: Never Sex and Gender Information Value Date Recorded Sex Assigned at Not on file Gender Identity Not on file Sexual Orientation Not on file Obstetrics History Plan of Treatment Health Maintenance Due Date Last Done Comments Pneumococcal Vaccine: 65+ Years (1 of 2 - PCV) 09/03/1951 Diabetes: Annual Foot Exam 09/03/1953 Diabetes: Annual Retina Eye Exam 09/03/1953 Hepatitis A Vaccines (1 of 2 - Risk 2-dose series) 09/03/1962 Zoster Vaccines (1 of 2) 09/03/1993 RSV Immunization Patients 60 + Years Old (1 - 1-dose 75+ series) 09/03/2018 Cholesterol Screening (Lipid Panel) 01/26/2022 Depression Screening 01/26/2022 Falls Risk Assessment 01/26/2022 Medicare Annual Wellness Visit 01/26/2022 Social Influencers of Health Screening 01/26/2022 COVID-19 Vaccine (4 - 2023-2 5 season) 2023 01/24/2021, 07/12/2020, 06/14/2020 Influenza Vaccine (#1) 2023 Diabetes: Annual Urine Albumin-Creatinine Ratio (uACR) 12/26/2023 Diabetes: Blood Sugar Contro l Test (HGBA1C) 06/24/2024 12/26/2023 Diabetes: Annual GFR (Glomerular Filtration Rate) 12/25/2024 12/26/2023 Hypertension/CHF/CAD Annual BMP Blood Test 12/25/2024 12/26/2023 DTaP,Tdap,and Td Vaccines (3 - Td or Tdap) 10/19/2032 10/19/2022, 09/07/2014 HIB Vaccines Aged Out No longer eligi ble based on patient's age to complete this topic HPV Vaccines Aged Out No longer eligi ble based on patient's age to complete this topic Hepatitis B Vaccines Aged Out No long er eligible based on patient's age to complete this topic IPV Vaccines Aged Out No longer eligi ble based on patient's age to complete this topic MMR Vaccines Aged Out No longer eligi ble based on patient's age to complete this topic Meningococcal ACWY Vaccine Aged Out N o longer eligible based on patient's age to complete this topic RSV Immunization Patients Under 20 months Aged Out No longer eligible b ased on patient's age to complete this topic Varicella Vaccines Aged Out No longer eligible based on patient's age to complete this topic Procedures Procedure Name Priority Date/Time Associated Diagnosis [...] unspecified complications (CMS/HCC) Unspecified atrial fibrillation (CMS/HCC) from Last 3 Months Results * Travel phlebotomy fee (12/26/2023 6:58 AM EDT) [facility] TRAVEL PHLEBOTOMY FEE Completed 12/26/2023 8:01 AM EDT [facility] Blood Venous blood specimen / Unknown 12/26/2023 6:58 AM EDT 12/26/2023 7:46 AM EDT Bill Stiles MD LAB BLOOD ORDERABLES [facility] [address] [place] [address], * (ABNORMAL) Complete blood count (12/26/2023 6:58 AM EDT) [facility] WBC 9.8 4.8 - 10.8 K/mcL LAB HEMETOLOGY METHOD 12/26/2023 3:04 PM EDT [facility] RBC 3.40(L) 4.50 - 5.50 M/[facility] LAB HEMETOLOGY METHOD 12/26/2023 3:04 PM EDT [facility] Hemoglobin 8.2(L) 13.5 - 17.5 g/dL LAB HEMETOLOGY METHOD 12/26/2023 3:04 PM EDT [facility] Hematocrit 29.1(L) 42.0 - 54.0 % LAB HEMETOLOGY METHOD 12/26/2023 3:04 PM EDT [facility] MCV 85.6 79.0 - 98.0 FL LAB HEMETOLOGY METHOD 12/26/2023 3:04 PM EDT [facility] MCH 24.1(L) 27.0 - 32.0 pcg LAB HEMETOLOGY METHOD [facility] MCHC 28.2(L) 32.0 - 37.0 g/dL LAB HEMETOLOGY METHOD 12/26/2023 3:04 PM EDT [facility] RDW 20.1(H) 11.0 - 15.0 % LAB HEMETOLOGY METHOD 12/26/2023 3:04 PM EDT [facility] Platelets 433(H) 130 - 400 K/mcL LAB HEMETOLOGY METHOD 12/26/2023 3:04 PM EDT [facility] MPV 9.1 7.0 - 11.0 FL LAB HEMETOLOGY METHOD 12/26/2023 3:04 PM EDT [facility] NRBC 0.0 <1.0 % LAB HEMETOLOGY METHOD 12/26/2023 3:04 PM EDT [facility] NRBC Absolute 0.00 <0.10 K/mcL LAB HEMETOLOGY METHOD 12/26/2023 3:04 PM EDT [facility] Blood Venous blood specimen / Unknown Venipuncture / Unknown 12/26/2023 6:58 AM EDT 12/26/2023 7:46 AM EDT Bill Stiles MD LAB BLOOD ORDERABLES [facility] [address] [place] [address], * Hemoglobin A1c (12/26/2023 6:58 AM EDT) Hemoglobin A1C 6.0 <6.5 % LAB CHEMISTRY METHOD 12/27/2023 2:19 PM EST [facility] Mean Bld Glu Estim. 126 mg/dL LAB CHEMISTRY METHOD 12/27/2023 2:19 PM [facility] Blood Venous blood specimen / Unknown Venipuncture / Unknown 12/26/2023 6:58 AM EDT 12/26/2023 7:46 AM EDT Bill Stiles MD LAB BLOOD ORDERABLES [facility] [address] [place] [address], [place] [phone] * (ABNORMAL) Basic metabolic panel (12/26/2023 6:58 AM EDT) Sodium 138 133 - 145 mmol/L LAB CHEMISTRY METHOD 12/26/2023 9:47 AM [facility] Potassium 4.4 3.5 - 5.5 mmol/L LAB CHEMISTRY METHOD 12/26/2023 9:47 AM [facility] Chloride 108 96 - 110 mmol/L LAB CHEMISTRY METHOD 12/26/2023 9:47 AM [facility] CO2 27 21 - 32 mmol/L LAB CHEMISTRY METHOD 12/26/2023 9:47 AM [facility] Anion Gap 3 3 - 11 LAB CHEMISTRY METHOD 12/26/2023 9:47 AM [facility] Glucose 102(H) 70 - 100 mg/dL LAB CHEMISTRY METHOD 12/26/2023 9:47 AM [facility] BUN 18 5 - 25 mg/dL LAB CHEMISTRY METHOD 12/26/2023 9:47 AM [facility] Creatinine 0.81 0.70 - 1.30 mg/dL LAB CHEMISTRY METHOD 12/26/2023 9:47 AM [facility] eGFR 89 >=60 mL/min/1. 73m2 LAB CHEMISTRY METHOD 12/26/2023 9:47 AM [facility] Comment:Calculation based on the??Chronic Kidney Disease Epidemiology Collaboration (CKD-EPI) equation refit??without adjustment for race. BUN/Creatinine Ratio 22.2 LAB CHEMISTRY METHOD 12/26/2023 9:47 AM [facility] Calcium 8.7 8.5 - 10.5 mg/dL LAB CHEMISTRY METHOD 12/26/2023 9:47 AM [facility] Blood Venous blood specimen / Unknown Venipuncture / Unknown 12/26/2023 6:58 AM EDT 12/26/2023 7:46 AM EDT Bill Stiles MD LAB BLOOD ORDERABLES [facility] ([facility] [address] [place] [address], from Last 3 Months Care Teams Banana Grader Relationship Specialty Start Date End Date Lion Chau MD PCP - General Internal Medicine 02/08/19
--- OUTSIDE RECORDS SUMMARY | 2024-03-23 12:52 | XMS_ITS | Clinical Summary ---
Author Organization [facility], Address [address] [place] [address] [place] [address] Phone Care Team Providers Care Automatic Lathe Setter Name Role Phone Lion Chau MD Primary Care Provider Social History Tobacco Use Types Packs/Day Years Used Date Smoking Tobacco: Never Assessed Sex and Gender Information Value Date Recorded Sex Assigned at Not on file Legal Sex Male 4:33 PM EST Gender Identity Not on file Sexual Orientation Not on file Plan of Treatment Health Maintenance Due Date Last Done Comments Pneumococcal Vaccine: 65+ Ye ars (1 of 1 - PCV) 09/03/2008 Influenza Vaccine (#1) 2023 Hepatitis B Vaccine Aged Out No longe r eligible based on patient's age to complete this topic Insurance MEDICARE [facility] Care Teams Automatic Lathe Setter Relationship Specialty Start Date End Date Lion Chau MD [address] [place] [address], [address] [place], [place] PCP - General 12/28/18
--- OUTSIDE RECORDS SUMMARY | 2024-03-23 12:52 | XMS_ITS | Data Portability ---
Author Organization [facility], Main Office Address [address], [address] [place] [address] Care Team Providers [place] Records Management Officer Name Role Phone CALVIN COURTNEY 1ST FLOOR OTHER SAMARIA CHAPPELL Primary Care Provider [phone] Assessment No assessment recorded. Plan of Treatment Reminders Order Date Submit Date Provider Last Modified By Organization Details Last Modified Time Details Appointments None record ed. Lab None record ed. Referral None record ed. Procedures None record ed. Surgeries None record ed. Imaging None record ed. Medication Orders None record ed. Patient TargetsNo targets recorded. Patient InstructionsNo instructions recorded. Reason for Referral None Reported. Problems Name Problem SNOMED Code Status Onset Date Resolution Date Notes Provider Name and Address Organization Details Recorded Time Atrial fibrillatio n 50087989 Active 2022 Keesha Isabel, GYPSUM CALCINER [address], [place], [address], [facility] 3 15:32:44 Anemia 741574853 Active 2022 Keesha Isabel, GYPSUM CALCINER [address], [address], [place], [address], [facility] 3 15:33:03 Benign prostatic hyperplasia without outflow obstruction 930743938 Active 2022 Keesha Saundersifel, GYPSUM CALCINER [address], [address], [place], [address], [facility] 3 15:33:42 Carotid atheroscler osis 632880926 Active 2022 Keesha Isabel, GYPSUM CALCINER [address], [address], [place], [address], [facility] 3 15:34:07 Cervical spondylosis 585132440 Active 2022 KYLE ReyesP [address], [address], [place], [address], [facility] 3 15:34:28 Chronic kidney disease 371793673 Active 2022 KYLE ReyesP [address], [address], [place], [address], [facility] 3 15:35:11 Crohn's disease 02792796 Active 2022 KYLE ReyesP [address], [address], [place], [address], [facility] 3 15:35:27 Diabetic peripheral neuropathy 731539997 Active 2022 KYLE ReyesP [address], [address], [place], [address], [facility] 3 15:36:02 Coronary arterioscle rosis 69764203 Active 2022 KYLE ReyesP [address], [address], [place], [address], [facility] 3 15:36:14 Type 2 diabetes mellitus 89494297 Active 2022 KYLE ReyesP [address], [address], [place], [address], [facility] 3 15:37:26 Edema 291458415 Active 2022 KYLE ReyesP [address], [address], [place], [address], [facility] 3 15:37:45 Closed fracture of right femur 8671311470366 9103 Active 2022 KYLE ReyesP [address], [address], [place], [address], [facility] [employer] [facility] 3 15:38:39 Closed fracture of right humerus 5928975513242 9103 Active 2022 Keesha Isabel, GYPSUM CALCINER [address], [address], [place], [address], [facility] 3 15:39:55 Essential hypertensio n 40563806 Active 2022 WILBUR Reyes [address], [address], [place], [address], [facility] 3 15:40:38 Spinal stenosis 53169756 Active 2022 WILBUR Reyes [address], [address], [place], [address], [facility] 3 15:41:16 Chronic anxiety 836858410 Active 2022 WILBUR Reyes [address], [address], [place], [address], [facility] 3 16:46:40 Gastroesoph ageal reflux disease without esophagitis 678765920 Active 2022 WILBUR Reyes [address], [address], [place], [address], [facility] 3 16:48:37 At increased risk for falls 488996747 Active 2022 WILBUR Reyes [address], [address], [place], [address], [facility] 3 16:49:46 Hypokalemia 85601962 Active 2022 UMM BISWAS, PHYSICIAN OFFICE NURSE [address], [address], [place], [address], [facility] 3 12:39:10 Problem Notes None recorded. Procedures Surgical History Date Name Laterality Status Provider Name and Address Organization Details Recorded Time coronary artery bypass grafts x 4 completed WILBUR Reyes [address], [address], [place], [address], [facility] 11/01/2022 16:20:42 Imaging Results None recorded. Procedure Notes None recorded. Medical Equipment None Reported. Allergies Allergen ID Allergen Name Allergen Category Reaction Reaction Severity Criticality Documentation Date Start Date Code Code System Note Provider Name and Address Organization Details Recorded Time [id number] 5463645e1 2824e Product containin g angiotens in-conver ting enzyme inhibitor (product) medicatio n Not available Not available Not available 11/01/2022 28765 009 SNOMED Not Available Not Available Not Available [id number] 048085687 [id number] 2824e house dust allergeni c extract environme nt,medica tion Not available Not available Not available 11/01/2022 41659 9 RxNorm Not Available Not Available Not Available [id number] 922488019 [id number] 2824e gabapenti n medicatio n Not available Not available Not available 11/01/2022 85907 RxNorm Not Available Not Available Not Available [id number] 361991673 [id number] 2824e losartan medicatio n Not available Not available Not available 11/01/2022 81137 RxNorm Not Available Not Available Not Available [id number] 836212816 [id number] 2824e mold extract environme nt Not available Not available Not available 11/01/2022 43152 8 RxNorm Not Available Not Available Not Available [id number] 542210621 [id number] 2824e pregabali n medicatio n Not available Not available Not available 11/01/2022 30941 2 RxNorm Not Available Not Available Not Available [id number] [id number] [id number] 2824e tolmetin sodium medicatio n Not available Not available Not available 11/01/2022 39742 RxNorm Not Available Not Available Not Available Medications Name Sig Start Date Stop Date Status Note LastModified by Organization Details LastModified Time Ativan 0.5 mg tablet Take 1 tablet every day by oral route at bedtime. 023 active Not Available Not Available Not Avai lable oxycodone 5 mg tablet Take 2 tablets every 4 hours by oral route. 023 active Not Available Not Available Not Avai lable OxyContin 10 mg tablet,jericho h resistant,e xtended release 2 tabs bid for 10 days, then 2 tabs daily for 10 days then one tab daily 023 active Not Available Not Available Not Avai lable Vitals Date Recorded Heart rate Respiratory rate Oxygen saturation Oxygen saturation in Arterial blood by Pulse oximetry Body temperature Systolic blood pressure Diastolic blood pressure Provider Name and Address Organization Details Last Updated DateTime 3 79 /min 18 /min 95 % 95 % 97.7 [degF] 102 mm[Hg] 51 mm[Hg] Keesha IsabelWILBUR [address] [facility] [facility] [address], [place], [address], [facility] 3 15:42:59 Date Recorded Body height Body mass index (BMI) Body weight Heart rate Respiratory rate Body temperature Oxygen saturation Oxygen saturation in Arterial blood by Pulse oximetry Systolic blood pressure Diastolic blood pressure Provider Name and Address Organization Details Last Updated DateTime 3 175.26 cm 26.1 kg/m2 48588.8 5 g 65 /min 16 /min 97.3 [degF] 97 % 97 % 104 mm[Hg] 59 mm[Hg] UMM BISWAS NP [address] [facility] [address], [place], [address], [facility] 3 11:00:28 Date Recorded Body height Body mass index (BMI) Body weight Heart rate Respiratory rate Body temperature Oxygen saturation Oxygen saturation in Arterial blood by Pulse oximetry Systolic blood pressure Diastolic blood pressure Provider Name and Address Organization Details Last Updated DateTime 3 175.26 cm 26.1 kg/m2 80575.8 5 g 81 /min 18 /min 97.3 [degF] 97 % 97 % 103 mm[Hg] 61 mm[Hg] Oneyda Montoya MD [address] [facility] [address], [place], [address], [facility] 3 20:21:38 Date Recorded Body height Heart rate Respiratory rate Body temperature Oxygen saturation Oxygen saturation in Arterial blood by Pulse oximetry Systolic blood pressure Diastolic blood pressure Provider Name and Address Organization Details Last Updated DateTime 3 175.26 cm 88 /min 16 /min 97.4 [degF] 96 % 96 % 124 mm[Hg] 60 mm[Hg] UMM BISWAS NP [address] [facility] [address], [place], [address], [facility] 3 12:36:16 Social History Question Answer Notes LastModified by Organizat ion Details LastModified Time Tobacco Smoking Status Never Smoker Keesha SaundersWILBUR morales [address] [facility], [facility] [address], [place], [address], [facility] 11/01/2022 16:02:48 Do You Have An Advance Directive? Yes Information not available 11/01/2022 What Is Your Level Of Alcohol Consumption? None Quit 56 Yrs Ago Information not available 11/01/2022 What Is Your Level Of Caffeine Consumption? Occasional Information not available 11/01/2022 What Is Your Code Status? Full Code Information not available 11/01/2022 Are You Following A Fluid Restriction Diet? Yes Information not available 11/01/2022 Where Do You Live? [place] With Son Information not available 11/04/2022 Legal Guardian? No Informati on not available 11/01/2022 Are You Following A Low Salt Diet? Yes Information not available 11/01/2022 Do You Have A Medical Power Of Structural Layout Worker? Yes Not Invoked Information not available 11/04/2022 What Was The Date Of Your Most Recent Tobacco Screening? 11/04/2022 Information not available 11/04/2022 Do You Have An Out Of Hospital DNR? No Information not available 11/01/2022 What Is Your Relationship Status? Lost To [place] 26 Yrs Ago. Information not available 11/04/2022 Do You Feel Stressed (tense, Restless, Nervous, Or Anxious, Or Unable To Sleep At Night)? [id number] Information not available 11/01/2022 Do You Use Any Illicit Or Recreational Drugs? No Information not available 11/01/2022 Has Tobacco Cessation Counseling Been Provided? No N/a As Pt Is Non-smoker Information not available 11/04/2022 Do You Have Any Dietary Restrictions? Yes Information not available 11/01/2022 Do You Or Have You Ever Used Any Other Forms Of Tobacco Or Nicotine? No Information not available 11/01/2022 Sex: Unknown Functional Status None recorded. Mental Status None recorded. Family History Relationship Description Onset Age of this Age Resolved Age Notes LastModified by Organization Details LastModified Time Father No current problems or disability [email or web address] Not available 11/01 16:01:19 Mother No current problems or disability mseifel Not available 11/01 16:01:19 Notes:n/c Medical History No medical history recorded. Immunizations Vaccine Type Date Status Note Provider Nam e and Address Organization Details Recorded Time SARS-COV-2 (COVID-19) vaccine, UNSPECIFIED 01/24/2021 completed Ashley Pedraza dionisio, [facility] 11/03/2022 16:46:15 SARS-COV-2 (COVID-19) vaccine, UNSPECIFIED 07/12/2020 completed Ashley Pedraza null, [facility] 11/03/2022 16:46:22 SARS-COV-2 (COVID-19) vaccine, UNSPECIFIED 06/14/2020 completed Ashley Pedraza null, [facility] 11/03/2022 16:46:34 Tdap 09/07/2014 completed Ashley [facility], [facility] 11/03/2022 16:46:48 Tdap 10/19/2022 completed Ashley [facility], [facility] 05/19/2023 16:41:54 SARS-COV-2 (COVID-19) vaccine, UNSPECIFIED 04/25/2022 completed Ashley [facility]o [facility], [facility] 05/19/2023 16:42:11 Past Encounters Encounter ID Performer Location Encounter Start Date Encounter Closed Date Diagnosis/Indication Diagnosis SNOMED-CT Code Diagnosis ICD10 Code Diagnosis Note [id number] Keesha Isabel [facility] [address] [place] [address] 11/01/2022 15:24:48 11/07/2022 10:08:56 Closed fracture of right femur 2291044206 4129171 S72.24XD non surgical. PT and OT. pain management with oxycontin 50 mg TID oxycodone 10 mg q 4 hrs prn pain. follow up with ortho. Closed fra cture of right humerus 5683816703 4870684 S42.301D PT and OT . pain management with oxycontin 50 mg TID and oxycodone 10 mg q 4 hrs prn. follow up with ortho. Type 2 daisy betes mellitus 31257019 E11.9 glipizide 5 mg ER 10 mg BID. monitor BS BID Essential hypertension 12568206 I10 metoprolol ER 25 mg daily Edema 011023661 R60.0 Lasix 40 mg BID Diabetic p eripheral neuropathy 917060889 E11.40 pain management with topiramate 50 mg BID. Coronary arteriosclerosis 25569347 I25.10 Metoprolol ER 25 mg daily. Crohn's disease 17866157 K50.90 Asacol ER 800 mg BID Probiotic 250 mg daily. Benign pro static hyperplasia without outflow obstruction 036265556 N40.0 Tamsulosin 0.4 mg 2 tabs qhs. Cervical spondylosis 387 084654 M47.812 PT and OT pain management with oxycontin 50 mg BID and oxycodone 10 mg q 4 hrs prn Atrial fibrillation 4943 6004 I48.0 metoprolol ER 25 mg daily. ASA 81 mg daily Apixaban 5 mg BID Carotid atherosclerosis 097237654 I65.29 Atorvastat in 20 mg daily. Anemia 784061109 D50.0 Ferrous sulfate 325 mg daily. monitor labs Magnesium 400 mg daily. Chronic anxiety 72297757 9 F41.1 Lorazepam 0.5 mg qhs Chronic ki dney disease 137599251 N18.9 stable now. monitor labs. Avoid renal toxic medication s. Gastroesop hageal reflux disease without esophagitis 141428783 K21.9 Pantaprazo le 20 mg daily. At [facility] ed risk for falls 818576638 Z91.81 PT and OT. Fall precaution s in place. [id number] YE BOYKIN [address] [place] [address] 11/03/2022 10:59:42 11/07/2022 11:09:01 Closed fracture of right femur 2298770043 3830349 S72.24XD non surgical. PT and OT. pain management with oxycontin 50 mg TID for 7 days then taperoxyco done 10 mg q 4 hrs prn pain.follo w up with ortho. Closed fra cture of right humerus 9372092514 7127344 S42.301D PT and OT . pain management withoxycon tin 50 mg TID for 7 days then taperoxyco done 10 mg q 4 hrs prn.follow up with ortho. Type 2 daisy betes mellitus 19433896 E11.9 glipizide1 0 mg daily.alisia tor BS BID Essential hypertension 50382187 I10 metoprolol ER 25 mg dailymonit or bp Edema 089803196 R60.0 Lasix 40 mg BID Diabetic p eripheral neuropathy 364495642 E11.40 pain management with topiramate 50 mg BID. Coronary arteriosclerosis 49480675 I25.10 Metoprolol ER 25 mg daily. Crohn's disease 07372346 K50.90 Asacol ER 800 mg BIDProbiot ic 250 mg daily. Benign pro static hyperplasia without outflow obstruction 423236030 N40.0 Tamsulosin 0.4 mg 2 tabs qhs. Cervical spondylosis 387 015536 M47.812 PT and OT pain management withoxycon tin 50 mg BID for 7 days then taperoxyco done 10 mg q 4 hrs prn Atrial fibrillation 4943 6004 I48.0 metoprolol ER 25 mg daily.ASA 81 mg dailyApixa ban 5 mg BID Carotid atherosclerosis 384788363 I65.29 Atorvastat in 20 mg daily. Anemia 889135867 D50.0 Ferrous sulfate 325 mg daily.alisia tor labsMagnes ium 400 mg daily. Chronic anxiety 18781460 9 F41.1 Lorazepam 0.5 mg qhspsych prn Chronic ki dney disease 014594465 N18.9 stable now.monito r labs.Avoid renal toxic medication s. Gastroesop hageal reflux disease without esophagitis 118195725 K21.9 omeprazole 40 mg daily. At [facility] ed risk for falls 710008501 Z91.81 PT and OT.Fall precaution s in placefrequ ent safety checks. [id number] Oneyda Montoya MD [address] [place] [address] 11/04/2022 19:37:35 11/18/2022 15:01:24 Closed fracture of right femur 6658365480 4060709 S72.24XD Continue Oxycontin 50 mg TID, oxy IR 10 mg q 4 hrs prn, and APAP 650 mg q 6 hrs prn.PT/OT as able.F/U with ortho as planned. Closed fra cture of right humerus 8638086017 5074748 S42.301D As above. Type 2 daisy betes mellitus 38153328 E11.42 BS in good control since here.Amish nue glipizide 10 mg qd.Continu e topiramate 50 mg BID for neuropathy and pain meds as above.Alisia tor fingerstic ks BID and HgA1C as outpt. Essential hypertension 79710278 I10 Good control on metoprolol ER 25 mg qd and Lasix 40 mg BID.Monito r BP and labs. Edema 206697497 R60.0 Continue lasix 40 mg BIDMonitor Coronary arteriosclerosis 94731575 I25.10 No recent sxs.Contin ue meds as above and ASA 81 mg qd and atorvastat in 20 mg qd.Monitor sxs.F/U with cardio as planned. Crohn's disease 66243568 K50.80 Continue Asacol ER 800 mg BID and probiotic 250 mg qd.Monitor bowel function.F /U with GI Benign pro static hyperplasia without outflow obstruction 775136231 N40.0 Continue tamsulosin 0.8 mgs qhs.Monito r urinary function. Cervical spondylosis 387 006251 M47.812 Pain management and rehab as above. Atrial fibrillation 4943 6004 I48.0 Rate in good control on meds as above.Cont inue eliquis 5 mg BID for AC.Monitor HR and bleeding risk. Carotid atherosclerosis 626136135 I65.29 As above. Anemia 134059770 D50.0 Multifacto rial and stable.Con tinue ferrous sulfate 325 mg qd.Monitor labs Chronic anxiety 80090596 9 F41.1 Continue lorazepam 0.5 mg qhsMood good today.Alisia tor mood.Consu lt psych prn Chronic ki dney disease 753181012 N18.1 Currently in nl rangeConti nue to avoid nephrotoxi c meds as able.Monit or labs.Renal consult prn. Gastroesop hageal reflux disease without esophagitis 688410597 K21.9 Continue omeprazole 40 mg qdMonitor sxs. [id number] YE BOYKIN [address] [place] [address] rd [place] [address] 11/10/2022 12:23:47 11/12/2022 08:19:19 Closed fracture of right femur 4910983347 6303609 S72.24XD non surgical. PT and OT. pain management with oxycontin 50 mg TID for 7 days then taper per d/c instructio ns, changed to 30 mg tid per ptoxycodon e 10 mg q 4 hrs prn pain.follo w up with ortho. Closed fra cture of right humerus 7441469558 9878516 S42.301D PT and OT . pain management withoxycon tin 50 mg TID for 7 days then taper per d/c instructio ns, changed to 30 mg tid per ptoxycodon e 10 mg q 4 hrs prn.follow up with ortho. Hypokalemia 79377356 E87 .6 kcl 20 meq x2 today then dailybmp Chronic anxiety 16752011 9 F41.1 Lorazepam 0.5 mg qhspsych prncomplai ns of chest pain and demanding to go to the hospital Health Concerns Section Related Observation LastModified by Organization Detai ls LastModified Time None Recorded Concern Status LastModified by Organization Details LastModified Time None Recorded Advance Directives Directive Y: Payers Encounter Date Sequence Insurance Name Policy Number Policy Smith Covered Member ID Smith Member ID Guarantor Name 11/01/2022 1 [place] [employer] Liborio H Stomski Sr [id number] Liborio Stomski 11/03/2022 1 [place] Liborio H Stomski Sr [id number] Liborio Stomski 11/03/2022 2 [place] [id number] Liborio Stomski [id number] Liborio Stomski 11/04/2022 1 [place] Liborio H Stomski Sr [id number] Liborio Stomski 11/04/2022 2 [place] [id number] Liborio Stomski [id number] Liborio Stomski 11/10/2022 1 [place] Liborio H Stomski Sr [id number] Liborio Stomski 11/10/2022 2 [place] [id number] Liborio Stomski [id number] Liborio Stomski Notes Date Note Type Note Provider Name and Address Organization Details Recorded Time 11/01/2022 text/html Patient is a 77 year old male with a PMH significant for afib, HTN, HLD, BPH, CKD, crohn's disease, anemia, cervical spondylosis, DM II, peripheral neuropathy, CAD, spinal stenosis, and opioid abuse, who presented after a fall in the parking lot and was found to have an acute right humeral head fracture and right hip trochanteric fracture. He was also anemic and transfusion was attempted but had to be stopped due to tachycardia. He was suicidal at one point which was related to not wanting to have more chemo if he had a 3rd cancer. That has subsided. He has a hx of breaking his spine and spending 2 years in rehab and was immobile. Now he has polyneuropathy and a complex pain syndrome. He is on oxycontin and oxycodone to manage his pain. He is here for rehab Keesha Isabel, GYPSUM CALCINER [address] [facility], [address], [place], [address], [facility] [employer] 11/01/2022 16:53:20 11/03/2022 text/html seen today for a cute rounding visit, CAOx3 renteria intact, pt declines to have it removed until he is more mobile, right arm in sling ,good cms to right hand UMM BISWAS, PHYSICIAN OFFICE NURSE [address] [facility], [address], [place], [address], [facility] [employer] 11/03/2022 11:09:19 11/04/2022 text/html This is a 77 yo man who is here for rehab after an acute hospitalization and then acute rehab for right humeral neck fx and right greater trochanteric fx after a mechanical fall.While inpt he was noted to have a hgb of 6.8, compared to baseline of 9 and an iron of 16. And he received IV Venofer. As his hemoglobin was 6.81 unit of PRBC was planned to be transfused however 15 minutes into the transfusion patient developed nausea vomiting and he was tachycardic with an elevation in temperature. Transfusion was discontinued and blood bank evaluated and the provisional diagnosis of transfusion associated circulatory overload was given. H&H remained low therefore repeat CT scan was obtained which confirmed that there is a hematoma at the fracture site in the lower extremity however there is no expansion and H&H remained stable. He will need ferrous sulfate supplementation. He indicated some SI and a psych consult was obtained and it was determined that he was not actively suicidal, but just having a hard time dealing with pain. He also said that if he ever got CA again he would not want to tx it. Transferred to [place] for acute rehab on 10/24.At [place] he had a hard time doing 3 hrs a day of rehab and so was transferred here on 10/31.Since here he has continued to c/o pain. At baseline he takes Oxycontin 15 mg TID and oxy IR 5 mg 6x/d for complex regional pain syndrome. Confirmed in [facility]. While inpt dose increased sig to manage pain from fxs.His PMH includes HTN, CAD s/p CABG, CKD stage 1, AFib on Eliquis, pacemaker, BPH, Crohn's disease, anemia, AODM, spinal stenosis, peripheral neuropathy, mild , mod-severe TR, and hx of opioid abuse. 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, complains he is not getting oob too much, reminded nursing he is to be oob for mealsOf note later in the day he was calling 911 to go back to the hiospital, he is mad that his pain meds were decreased, went in to discuss this with him and he said he was on 30 mg oxycontin tid not 20 mg and it is not enough, this will be changed to his home dose of 30 mg tid, he was angry and yelling at both myself and the nurse, and insisting to go to the hospital for chest pain , AP was 70 s irregular, he will be sent to ED UMM BISWAS NP [address] [facility], [address], [place], [address], [facility] 11/10/2022 14:45:15
== END 2024-03-23 11:37 | disposition home or self-care (01) ==
PROVIDERS: PCP Internal Medicine; Visit Provider Anesthesiology
DX: M25.561 Pain in right knee (principal); Z96.651 Presence of right artificial knee joint; M54.50 Low back pain, unspecified; R51.9 Headache, unspecified; M25.511 Pain in right shoulder; M25.512 Pain in left shoulder; G89.4 Chronic pain syndrome
CPT/HCPCS: 99204

== ENCOUNTER → 2024-03-23 10:45 | Outpatient (BNVA) | payer MEDICARE, SELFPAY | PROVIDERS: PCP Internal Medicine; Visit Provider Anesthesiology | DX: M25.561 Pain in right knee (principal); M54.50 Low back pain, unspecified; R51.9 Headache, unspecified; M25.511 Pain in right shoulder; M25.512 Pain in left shoulder; G89.4 Chronic pain syndrome; G89.29 Other chronic pain; Z96.651 Presence of right artificial knee joint | CPT/HCPCS: 99202 ==